=== PATIENT | female | born 1980 | race Caucasian/White ===

== ENCOUNTER 2021-02-09 09:07 | Emergency (ER) | payer OTHER ==
[~2021-02-09] VITALS: Ht 172.7 cm; Wt 56.0 kg
--- NOTE | 2021-02-09 09:34 | PHYS DOC ---
General Adult EDM: Chief Complaint: Palpitations HPI: HPI: 41-year-old female presents with palpitations. The patient has had palpitations for several years. She presents today because they have been getting more frequent she started to have some mild shortness of breath and chest pressure over the last couple days. She had another episode this morning which got up to moderate in intensity. This made her concerned so she came in for evaluation. Nothing seems to make it better or worse. The pain episodes and palpitations last for several minutes and then go away. She denies fever, chills, dysuria, increased urinary frequency, nausea, or vomiting. She has been feeling genera lly well. She has never had her palpitations evaluated. Review of Systems: Review of Systems: Constitutional: Denies fever or chills Eyes: Denies change in visual acuity HENT: Denies nasal congestion or sore throat Respiratory: Shortness of breath Cardiovascular: Palpitations GI: Denies abdominal pain, nausea, vomiting, bloody stools or diarrhea : Denies dysuria Musculoskeletal: Denies back pain or joint pain Integument: Denies rash Neurologic: Denies headache, focal weakness or sensory changes Endocrine: Denies polyuria or polydipsia Lymphatic: Denies swollen glands Psychiatric: Denies depression or anxiety Current Medications: Current Meds: Current Medications Medications (Trade) Dose Ordered Sig/[facility] Start Time Stop Time Status Last Admin Dose Admin Sodium Chloride 1,000 ml @ 1,000 mls/hr 1X ONCE 02/09/21 09:30 02/09/21 10:29 UNV Physical Exam: PE: Constitutional: Well developed, well nourished, no acute distress, non-toxic appearance. [] HENT: Normocephalic, atraumatic, bilateral external ears normal, oropharynx moist, no oral exudates, nose normal. [] Eyes: PERRLA, EOMI, conjunctiva normal, no discharge. [] Neck: Normal range of motion, no tenderness, supple, no stridor. [] Cardiovascular: Heart rate regular rhythm, no murmur [] Lungs & Thorax: Bilateral breath sounds clear to auscultation [] Abdomen: Bowel sounds normal, soft, no tenderness, no masses, no pulsatile masses. [] Skin: Warm, dry, no erythema, no rash. [] Back: No tenderness, no CVA tenderness. [] Extremities: No tenderness, no cyanosis, no clubbing, ROM intact, no edema. [] Neurologic: Alert and oriented X 3, normal motor function, normal sensory function, no focal deficits noted. [] Psychologic: Affect normal, judgement normal, mood concerned. [] EKG: EKG: [] Radiology/Procedures: Radiology/Procedures: [] Impressions: Single AP view of the chest. Comparison: None. Indication: Palpitations Findings: The heart is not enlarged. There is no pneumothorax or effusion. No air space or interstitial disease. Impression: 1. No acute cardiopulmonary process. Electronically signed by: Princess Christopher MD (02/09/2021 9:44 AM) [id number] DICTATED AND SIGNED BY: PRINCESS CHRISTOPHER MD DATE: 02/09/21943 CC: KEYON DE LA ROSA DO; PCP,NO ~MTH0 0 Heart Score: C/O Chest Pain: N/A Risk Factors: Risk Factors: DM, Current or recent (<one month) smoker, HTN, HLP, family history of CAD, obesity. Risk Scores: Score 0 - 3: 2.5% MACE over next 6 weeks - Discharge Home Score 4 - 6: 20.3% MACE over next 6 weeks - Admit for Clinical Observation Score 7 - 10: 72.7% MACE over next 6 weeks - Early Invasive Strategies Course & Med Decision Making: Course & Med Decision Making Pertinent Labs and Imaging studies reviewed. (See chart for details) The patient's labs are unremarkable. Her EKG is unremarkable. We found no abnormalities on cardiac catheterization technician during her stay in the ER. Her chest x-ray is unremarkable. I suspect the patient is having intermittent palpitations due to some form of arrhythmia, but I am unsure what type. I have encouraged her to follow-up with her primary care physician and consider Holter monitor. She is stable for discharge at this time. [] Dragon Disclaimer: Dragon Disclaimer: This electronic medical record was generated, in whole or in part, using a voice recognition dictation system. Departure Departure: Impression: Primary Impression: Palpitations Disposition: HOME / SELF CARE / HOMELESS Condition: STABLE Referrals: PCP,NO (PCP) Patient Instructions: Palpitations, [id number] KEYON DE LA ROSA DO Feb 09, 2021 09:34
--- NOTE | 2021-02-09 09:46 | RAD ---
Single AP view of the chest. Comparison: None. Indication: Palpitations Findings: The heart is not enlarged. There is no pneumothorax or effusion. No air space or interstitial diseas e. Impression: 1. No acute cardiopulmonary process. Electronically signed by: Eulogio Quintero MD (02/09/2021 9:44 AM) [id number]
[2021-02-09] MEDS: IV NORMAL SALINE 1,000ML 1,000 ML IV ONE (09:58)
[2021-02-09 10:06] LABS: CALCIUM 9.1 mg/dL (8.5-10.1); CREATININE 0.7 mg/dL (0.6-1.0); GFR 93.2
[2021-02-09 10:08] LABS: BASO % 1 % (0-3); EOS # 0.1 x10^3/uL (0.0-0.7); EOS % 3 % (0-3); HEMATOCRIT 38.2 % (36.0-47.0); LYMPH # 1.3 x10^3/uL (1.0-4.8); LYMPH % 34 % (24-48); MEAN CORPUSCULAR HEMOGLOBIN 31 pg (25-35); MEAN CORPUSCULAR HGB CONC 34 g/dL (31-37); MEAN CORPUSCULAR VOLUME 90 fL (79-100); MONO # 0.3 x10^3/uL (0.0-1.1); MONO % 8 % (0-9); NEUT # 2.2 x10^3uL (1.8-7.7); NEUT % 55 % (31-73); PLATELET COUNT 287 x10^3/uL (140-400); RED BLOOD COUNT 4.23 x10^6/uL (3.50-5.40); RED CELL DISTRIBUTION WIDTH 12.8 % (11.5-14.5); WHITE BLOOD COUNT 3.9 x10^3/uL (4.0-11.0)
[2021-02-09 10:12] LABS: ALBUMIN 3.9 g/dL (3.4-5.0); ALBUMIN/GLOBULIN RATIO 1.1 (1.0-1.7); TOTAL BILIRUBIN 0.5 mg/dL (0.2-1.0); TOTAL PROTEIN 7.5 g/dL (6.4-8.2)
--- NOTE | 2021-02-09 10:21 | EKG ---
[address] [address] Test Date: 2021-02-09 Test Time: 09:24:55 Pat Name: KALPESH OTTO Department: Room: Gender: F Scanning Coordinator: BYRON : 1980 Requested By: KEYON DE LA ROSA Order Number: [id number] Reading MD: Measurements Intervals [place] Rate: 68 P: 67 CA: 152 QRS: 69 QRSD: 80 T: 59 QT: 414 QTc: 440 Interpretive Statements SINUS RHYTHM NORMAL ECG RI6.02 No previous ECG available for comparison
[2021-02-09 10:29] LABS: AMPHETAMINE/METHAMPHETAMINE NEG (NEG); BARBITURATES NEG (NEG); BENZODIAZEPINES NEG (NEG); CANNABINOIDS NEG (NEG); COCAINE NEG (NEG); METHADONE NEG (NEG); OPIATES NEG (NEG); PHENCYCLIDINE NEG (NEG)
[2021-02-09 10:30] VITALS: BP 128/78
[2021-02-09 10:35] LABS: BILIRUBIN,URINE NEG (NEG); CLARITY,URINE CLEAR; COLOR,URINE YELLOW; GLUCOSE,URINE NEG (NEG)
[2021-02-09 10:36] LABS: NITRITE,URINE NEG (NEG); UROBILINOGEN,URINE 0.2 mg/dL (0.2 mg/dL)
[2021-02-09 10:37] LABS: BACTERIA,URINE MOD /HPF (0-FEW); RBC,URINE 0 /HPF (0-2); SQUAMOUS EPITHELIAL CELL,UR FEW /LPF; WBC,URINE OCC /HPF (0-4)
== END 2021-02-09 11:00 | disposition home or self-care (01) ==
LOC: ER 09:07
DX: R00.2 Palpitations (principal)
CPT/HCPCS: 36415; 71045; 80053; 80307; 81001; 84484; 85025; 87086; 93005; 96360; 99285; J7030